=== PATIENT | female | born 2000 | race Two or more races ===

== ENCOUNTER 2025-03-14 13:40 | Emergency (ER) | payer MEDICAID ==
[~2025-03-14] VITALS: Ht 152.4 cm; Wt 52.2 kg
[2025-03-14] MEDS ORDERED: ACETAMINOPHEN 325 MG TABLET ONE (14:53)
[2025-03-14] MEDS: ACETAMINOPHEN 325 MG TABLET PO ONE (14:55)
[2025-03-14] MEDS ORDERED: IBUP-1955 PO (16:21)
[2025-03-14] MEDS ORDERED: ACET325C7 PO (16:21)
[2025-03-14 18:22] VITALS: BP 115/90; TEMP 98.2; O2SAT 99
== END 2025-03-14 18:22 | disposition home or self-care (01) ==
LOC: ER 14:01
DX: M94.0 Chondrocostal junction syndrome [Tietze] (principal); N64.4 Mastodynia; R10.20 Pelvic and perineal pain unspecified side
CPT/HCPCS: 36415; 71045-TC; 76641-TC; 84702-TC